=== PATIENT | female | born 1940 | race Caucasian/White ===

== ENCOUNTER 2018-07-08 06:23 | Inpatient (IN) | payer MEDICARE, OTHER ==
[~2018-07-08] VITALS: Ht 152.4 cm; Wt 49.9 kg
--- NOTE | 2018-07-08 06:46 | NUR ---
ANN WAS CONTACTED, PER PT, AND INFORMED THAT PT IS IN THE ED, STS HE IS NOT IN TOWN AND CANNOT COME TO THE ED, BUT STS "I'VE BEEN TRYING TO TAKE CARE OF HER AND I HAVE HER LIVING AT A FACILITY BUT SHE KEEPS RUNNING AWAY", STS HE IS NOT PT'S BLOOD RELATIVE STS "SHE DOES NOT HAVE ANY FAMILY" STS SHE DOES HAVE HX OF ALZHEIMER'S.
--- NOTE | 2018-07-08 06:57 | NUR ---
PATIENT WAS BROUGHT IN BY EMS WITH COMPLAINT OF BILATERAL FOOT PAIN. PATIENT APPEARS DISORIENTED. PATIENT REPORTS SHE FELL 3 TIMES, CLAIM SHE FELL ON HER SIDE. PATIENT HAS BRUISE/SCRATCH ON THE LT KNEE. ems REPORT PATIENT WAS WALKING WITH HE LUGGAGE, AND WALKED INTO A STORE WITH COMPLAINT OF BILATERAL FOOT PAIN. 911 WAS CALLED. PATIENT IS ORIENTED TO PERSON. DR STEELE AT THE BEDSIDE CONTACT WAS MADE. WITH ? FAMILY WHO REPORTES PATIENT HAS DEMENTIA AND TRYS TO LEAVE THE HOME SHE STAYS AT.
[2018-07-08 07:00] LABS: BASOPHIL % 0.3 % (0-2); PLATELET COUNT 192 x10^3mcL (130-400); RED CELL DISTRIBUTION WIDTH 14.3 % (11.5-14.5)
--- NOTE | 2018-07-08 07:09 | NUR ---
PATIENT HAD BLOOD DRAWN EKS WAS DONE. PATIENT IS SLEEPING AT THIS TIME.
[2018-07-08 07:14] LABS: ALBUMIN 3.7 g/dL (3.4-5.0); ALKALINE PHOSPHATASE 91 U/L (46-116); ALT/SGPT 30 U/L (14-59); AST/SGOT 42 U/L (15-37); BILIRUBIN TOTAL 0.6 mg/dL (0.20-1.00); CALCIUM 8.9 mg/dL (8.5-10.1); CARBON DIOXIDE 23.2 mmol/L (21-32); CHLORIDE SERUM 99 mmol/L (98-107); CREATININE SERUM 0.9 mg/dL (0.6-1.0); GLUCOSE SERUM 246 mg/dL (74-106); SODIUM SERUM 136 mmol/L (136-145)
[2018-07-08 07:16] LABS: POTASSIUM SERUM 2.9 mmol/L (3.5-5.1)
--- NOTE | 2018-07-08 07:23 | NUR ---
PT SLEEPING IN GURNEY, EASILY AROUSABLE WITH NAD. PT HOOKED UP TO MONITORS, WILL CONTINUE TO MONITOR.
--- NOTE | 2018-07-08 07:57 | NUR ---
CALLED TITA WHO IS IN PATIENT CONTACT BOOK. NO ANSWER LEFT A VOICEMAIL AT [phone]
--- NOTE | 2018-07-08 08:44 | NUR ---
CALLED ANN, WENT STRAIGHT TO VOICEMAIL LEFT A VOICEMAIL STATING TO CALL BACK. CALLED [phone]
--- NOTE | 2018-07-08 08:52 | NUR ---
ANN CALLED BACK AND STATED THAT PT WAS LIVING WITH DAUGHTER, AND 9 MONTHS AGO DAUGHTER KICKED HER OUT. PT WAS THEN PLACED IN A FACILITY WHICH PT DID NOT LIKE AND RAN AWAY SO THEY FOUND HER A NEW PLACE AND SHE DIDNT LIKE THAT FACILITY WELL. ANN STATES THAT HAS HAPPENED 3 TIMES AND PT KEEPS RUNNING AWAY. ANN STATES THAT PT DOES NOT REALLY HAVE ANY FAMILY.
--- NOTE | 2018-07-08 09:16 | NUR ---
FOOD TRAY PROVIDED. PT EATING WITH NO DIFFICUTLY. HELPED BY LAURIE PANG
--- NOTE | 2018-07-08 09:43 | NUR ---
PATIENT RESTING COMFORTABLY IN BED. ATE 100% OF DIABETIC BREAKFAST, BED IN LOW POSITION WITH SIDE RAILS UP.
--- NOTE | 2018-07-08 11:26 | NUR ---
PATIENT RESTING COMFORTABLY, EASILY AROUSABLE, SIDE RAILS UP AND BED PLACED IN LOCKED AND LOW POSITION. HOOKED UP TO MONITORS AND WILL CONTINUE TO MONITOR.
--- NOTE | 2018-07-08 13:27 | NUR ---
FOOD TRAY DELIVERED IN ROOM.
--- NOTE | 2018-07-08 13:28 | NUR ---
PT EATING LUNCH. AWAKE AND ALERTR. BREATHING EVEN AND U NLABORED. WILL DONOVAN O MONITOR.
--- NOTE | 2018-07-08 13:33 | NUR ---
[facility] WILL [facility] L[facility]EL SKILLED FACILITY AND TRANSPORTATION. STATES IF UNABLE TO FIND PLACEMENT, ADMITTING UNDER OBSERVATION UNTIL PLACEMEMTN IS AUTHORIZED.
--- NOTE | 2018-07-08 14:22 | NUR ---
RECEIVED PATIENT FROM ER NURSE VIA [facility]. PATIENT ABLE TO AMBULATE FROM [facility] TO BED. BREATHING EVEN AND UNLABORED. NO RESPIRATORY DISTRESS NOTED. PATIENT DENIES CHEST PAIN AT THIS TIME. PATIENT A/O X2 PERSON/PLACE. PATIENT IS A MEDSURG PATIENT AND DENIES CHEST PAIN AT THIS TIME. NO APPARENT PROBLEMS WITH EENT. IV PATENT TO LEFT HAND. ALL QUESTIONS AND CONCERNS ADDRESSED. ALL NEEDS ATTENDED TO. PATIENTS PERSONAL BELONGINGS AT BEDSIDE. WILL CONTINUE TO MONITOR
[2018-07-08 15:49] VITALS: BP 110/59
--- NOTE | 2018-07-08 16:48 | NUR ---
PATIENTS BLOOD SUGAR 363 AT THIS TIME. 15 UNITS INSULIN COVERAGE NEEDED (SEE EMAR). ALL NEEDS ATTENDED TO. WILL CONTINUE TO MONITOR
--- NOTE | 2018-07-08 16:56 | NUR ---
DR HALE AWARE OF POTASSIUM REPLACEMENT DOWN IN ER. PER DR GEOFFREY WYATT TO GIVE ANOTHER 40 MEQ OF POTASSIUM AT THIS TIME. ALL QUESTIONS AND CONCERNS ADDRESSED. ALL NEEDS ATTENDED TO. WILL CONTINUE TO MONITOR
[2018-07-08 17:33] VITALS: BP 103/53
--- NOTE | 2018-07-08 18:58 | NUR ---
PATIENT RESTING COMFORTABLY IN BED AT THIS TIME. NO DISTRESS OR DISCOMFOTY NOTED. IV PATENT AND INTACT. ALL QUESTIONS AND CONCERNS ADDRESSED. SAFETY PRECAUTIONS MAINTAINED. ALL NEEDS ATTENDED TO. SITTER AT BEDSIDE TO ENFORCE SAFETY. WILL ENDORSE ALL CARE TO FACILITIES MAINTENANCE WORKER NURSE
--- NOTE | 2018-07-08 20:00 | NUR ---
ASLEEP AROUSABLE TO VERBAL STIMULUS, NO DISTRESS LUNGS CTA, DENIES PAIN, NO BEHAV ISSUES, SITTER AT BEDSIDE, IV ACCESS LH PATENT NON INFIL, SMALL LT KNEE ABRASION RETAIL PHARMACY MANAGER NO S/SX OF IRRITATION, SHIFT ASSESSMENT DONE, CALL LIGHT AT REACH CONT TO MONITOR AND PROCEED TO CURRENT PLAN OF CARE.
[2018-07-08 20:38] VITALS: BP 111/58
--- NOTE | 2018-07-08 22:38 | NUR ---
PT BLD SUGAR 66 MG/DL ASYMTOMATIC, STATED THAT SHE DIDNT EAT DINNER COZ SHE'S NOT HUNGRY, PT DRINK ORANGE JUICE AND ATE THE PUDDING, WILL CONT TO MONITOR.
--- NOTE | 2018-07-09 01:00 | NUR ---
PT SLEPT WELL NO S/SX OF PAIN OR DISCOMFORTS, NO DISTRESS, SITTER REMAINED AT BEDSIDE, BED ALARM ON, CHECKED AT INTERVALS.
[2018-07-09 05:38] VITALS: BP 109/52
[2018-07-09 06:30] LABS: CALCIUM 8.4 mg/dL (8.5-10.1); CHLORIDE SERUM 104 mmol/L (98-107); CREATININE SERUM 0.7 mg/dL (0.6-1.0); GLUCOSE SERUM 181 mg/dL (74-106); POTASSIUM SERUM 3.3 mmol/L (3.5-5.1); SODIUM SERUM 139 mmol/L (136-145)
[2018-07-09 06:35] LABS: BASOPHIL % 0.5 % (0-2); PLATELET COUNT 157 x10^3mcL (130-400)
--- NOTE | 2018-07-09 06:55 | NUR ---
NO SIGNIFICANT CHANGES, SITTER AT BEDSIDE, PT IS COOPERATIVE AND CALM FOLLOWS SIMPLE COMMANDS, WILL ENDORSE TO INCOMING SHIFT.
[2018-07-09 07:03] LABS: RED CELL DISTRIBUTION WIDTH 15.1 % (11.5-14.5)
--- NOTE | 2018-07-09 07:50 | NUR ---
RC'D PT RESTING IN BED WITH NO APPARENT SIGNS OF DISTRESS. A/A/O/X2, SPEECH CLEAR. PT CONFUSED AT TIMES. MEDSURG. DENIES CHEST PAIN/PRESSURE. PALP PULSES, NO EDEMA NOTED. RESPIRATIONS EQUAL AND UNLABORED. LUNGS CTA. ON RA, DENIES SOB. ABDOMEN SOFT AND NONTENDER. ACTIVE BS. DENIES N/V. VOIDS FREELY. GENERALIZED WEAKNESS. AMB WITH ASSIST. LLE ABRASIAN NOTED, MARIA ISABEL. PT DENIES PAIN AT THIS TIME. IV PATENT AND INTACT. BED IN LOW POSITION. CALL LIGHT IN REACH. WILL CONTINUE TO MONTIOR
--- NOTE | 2018-07-09 08:39 | NUR ---
PT CURRENTLY WORKING WITH PT. NO APPARENT SIGNS OF DISTRESS. WILL CONTINUE TO MONITOR
[2018-07-09 09:21] VITALS: BP 106/56
--- NOTE | 2018-07-09 09:25 | NUR ---
PT C/O OFMILD VELEZ, MEDICATED PER EMAR.
--- NOTE | 2018-07-09 11:55 | NUR ---
PT RESTING IN BED WITH NO APPARENT SIGNS OF DISTRESS. RESPIRATIONS EQUAL AND UNLABORED. ON RA, DENIES SOB. PT DENIES EXCESSIVE PAIN AT THIS TIME. BED IN LOW POSITION. CALL LIGHT IN REACH. WILL CONTINUE TO MONITOR
--- NOTE | 2018-07-09 17:35 | NUR ---
PT RESTING IN CHAIR EATING DINNER WITH NO APPARENT SIGNS OF DISTRESS. MEDSURG. NO APPARENT S/S OF CP. RESPIRATIONS EQUAL AND UNLABORED. ON RA, NO S/S OF RESP DISTRESS. AMBULATORY WITH ASSIST. NO ACUTE SKIN CHANGES NOTED AT THIS TIME. PT DENIES EXCESSIVE PAIN. IV PATENT AND INTACT. CALL LIGHT IN REACH. WILL ENDORSE TO FIELD SERVICE ANALYST RN
[2018-07-09 17:44] VITALS: BP 121/60
--- NOTE | 2018-07-09 19:20 | NUR ---
RECEIVED PT SITTING ON THE CHAIR WATCHING TV. NO DISTRESS NOTED. NO C/O PAIN. SALINE LOCK TO LH, PATENT AND INTACT. BED IN LOWEST POSITION,CALL LIGHT WITHIN REACH. WILL CONTINUE TO MONITOR.
--- NOTE | 2018-07-09 19:22 | NUR ---
PT C/O OF PAIN, MEDICATED PER EMAR.
[2018-07-09 20:59] VITALS: BP 113/54
[2018-07-10 04:45] VITALS: BP 106/53
--- NOTE | 2018-07-10 05:37 | NUR ---
PT APPEARS TO BE SLEEPING.NO ACUTE DISTRESS NOTED. NOINDICATION OF PAIN. BED IN LOWEST POSITION,SIDERAILS UP. CALL LIGHT WITHIN REACH. WILL CONTIUE TO MONITOR.
--- NOTE | 2018-07-10 07:50 | NUR ---
CARE ENDORSED TO DAY NURSE MARY.
--- NOTE | 2018-07-10 08:00 | NUR ---
RC'D PT RESTING IN BED WITH NO APPARENT SIGNS OF DISTRESS. A/A/O/X2 SPEECH CLEAR AND APPROPRIATE. PT CONFUSED AT TIMES. PT C/O OF SLIGHT HEAD DISCOMFORT, WILL MEDICATE ACCORDINGLY. PALP PULSES, NO EDEMA NOTED. RESPIRATIONS EQUAL AND UNLABORED. LUNGS CTA. ON RA, DENIES SOB. ABDOMEN SOFT AND NONTENDER. ACTIVE BS. DENIES N/V. VOIDS FREELY. AMBULATORY WITH ASSIST. GENERALIZED WEAKNESS. LLE MARIA ISABEL HURT. IV PATENT AND INTACT. BED IN LOW POSITION. CALL LIGHT IN REACH. WILL CONTINUE TO MONITOR
--- NOTE | 2018-07-10 08:43 | NUR ---
PT C/O OF VELEZ, MEDICATED PER EMAR
[2018-07-10 08:55] VITALS: BP 112/71
--- NOTE | 2018-07-10 12:59 | NUR ---
PT RESTING IN BED EATING LUNCH WITH NO APPARENT SIGNS OF DISTRESS. RESPIRATIONS EQUAL AND UNLABORED. DENIES PAIN AT THIS TIME. BED IN LOW POSITION. CALL LIGHT IN REACH. WILL CONTINUE TO MONITOR
[2018-07-10 16:45] VITALS: BP 103/51
--- NOTE | 2018-07-10 17:56 | NUR ---
PT RESTING IN BED WITH NO APPARENT SIGNS OF DISTRESS, MEDSURG. DENIES CHEST PAIN/PRESSURE. RESPIRATIONS EQUAL AND UNLABORED. ON RA, DENIES OB. GENERALIZED WEAKNESS. AMB WITH ASSIST. NO ACUTE SKIN CHANGES NOTED. PT DENIES PAIN AT THIS TIME. IV PATENT AND INTACT, SL. BED IN LOW POSITION. CALL LIGHT IN REACH. WILL ENDORSE TO CONTROLS OPERATOR MOLDED GOODS RN
--- NOTE | 2018-07-10 19:40 | NUR ---
REC'D PT FROM DAY NURSE. PT SITTING ON THE CHAIR. ORIENTED TO SELF ONLY. HX DEMENTIA. FOLLOWS COMMANDS, SPEECH CLEAR, NO FACIAL DROOP NOTED. JAPANESE SPEAKING. MARIZOL, VENEER SLICING MACHINE OPERATOR, ASSISTED WITH TRANSLATION. PT WAS LOOKING FOR DIRECTIONS TO GET TO A [facility] IN [place]. REORIENTED TO PLACE AND TIME. INFORMED THE PT WE ARE LOOKING FOR A JAIL TO PLACE HER IN. PT VERBALIZED UNDERSTANDING. MED SURG, NO TELE. DENIES ANY PAIN OR DISCOMFORT. BREATHING EVEN/UNLABORED ON RA. ABD SOFT/ROUND. DENIES ABD PAIN, TENDERNESS OR N/V. VOIDING FREELY. GEN WEAKNESS. AMB WITH SUPERVISION. LIMP NOTED. LEFT KNEE ABRASION GRAIN BROKER AND MARKET OPERATOR. IV TO LFA FLUSHED AND PATENT, SITE WNL. CALL LIGHT WITHIN REACH, BED AT LOWEST POSITION. WILL CONTINUE TO MONITOR.
[2018-07-10 21:04] VITALS: BP 118/66
--- NOTE | 2018-07-11 00:52 | NUR ---
PT RESTING IN BED WITH EYES CLOSED. NO SIGNS OF DISTRESS NOTED. BREATHING EVEN/UNLABORED ON RA. CALL LIGHT WITHIN REACH, BED AT LOWEST POSITION. WILL CONTINUE TO MONTIOR.
[2018-07-11 05:15] VITALS: BP 130/64
--- NOTE | 2018-07-11 06:44 | NUR ---
PT RESTING IN BED WITH EYES CLOSED. LAYING ON R SIDE. AWAKENS WITH VERBAL STIMULI. BREATHING EVEN/UNLABORED ON RA. NO SIGNFICANT CHANGES DURING SHIFT. BS 153, 3 UNITS REG INSULIN GIVEN. CALL LIGHT WITHIN REACH, BED AT LOWEST POSITION. WILL ENDORSE TO DAY NURSE.
--- NOTE | 2018-07-11 07:15 | NUR ---
RECEIVED PT FROM [facility] LAURIE CHRISTINA. PT AWAKE AND ALERT. NO S/S OF ACUTE DISTRESS. NO COMPLAINT OF PAIN. DENIES SOB ON ROOM AIR. NO CHEST PAIN. PT IN ROOM CLOSE TO NURSES STATION. BED IN LOW POSITION. CALL LIGHT WITHIN REACH. WILL CONT. TO MONITOR.
[2018-07-11 08:34] VITALS: BP 125/57
--- NOTE | 2018-07-11 12:00 | NUR ---
PT SITTING IN CHAIR AT SIDE OF BED. AA/OX2, NO S/S OF ACUTE DISTRESS. DENIES PAIN. NO SOB ON ROOM AIR. CALM/COOPERATIVE. AMBULATORY WITH FULL ROM, GAIT SLOW/STEADY. BED IN LOW POSITION. CALL LIGHT WITHIN REACH. WILL CONT. TO MONITOR.
--- NOTE | 2018-07-11 12:46 | NUR ---
Initial Nutrition Assessment Dx: Gravely disabled, DM, Dementia PMHx: DM Type II PSHx: None Labs: (07/09) Na 139, K 3.3L, BG 181H, BUN 9, Cr 0.7, A1c 11.1H, WBC 5.4, H/H 11.2L/33L BG accuchecks 07/09-07/11: 119-331 mg/dL, with some readings >180 mg/dL. Insulin coverage is provided PRN. Meds: Tylenol, D50%, Glyburide, [place], Humulin, Metformin, Zofran Diet: [facility] PO Intake: (07/09-07/11): 85-100% x 7 meals Ht: 60" (152 cm) Wt: 110# (49.9 kg) BMI: 21.5 (Slightly underweight considering age) IBW: 100# %IBW: 110% UBW: Unable to recall Age: 77 y/o elderly female Food Allergies: NKFA Skin: Intact Rocky: 19 Edema: None GI: Last BM x 1 (07/11) Per H&P, pt. admitted with leg pain and frequent falls; no trauma sustained based on imaging reports. Hx of DM, no other history was obtained due to pt. being a poor historian d/t cognitive degeneration. No acute events overnight, as pt. is medically stable for transfer. Per bed huddle discussion, pt. is homeless and jail placement is pending at this time. Pt. laying in bed during visit. AO x 1, and unable to answer nutrition related questions. Pt. has excellent PO intake with good tolerance and no GI distress per nursing. Problem with: No c/o N/V/D/C Problems with: Chewing: N Swallowing: N Current appetite: Excellent Recent wt change: N/A %wt change: N/A Vitamin/Supplement use: None Special diet at home: Regular Physical activity: None, pt. is homeless Education: Attempted [facility] diet education; unable to comprehend [facility] diet education d/t cognitive decline from Dementia. Estimated Nutritional Needs Based on actual body weight 49.9 kg: Energy: 4771-0105 kcal/d (25-30 kcal/kg- older adult maintenance) Protein: 50-60 g/d (1.0-1.2 g/kg)-geriatric maintenance and preservation of lean body mass Fluid: 0501-5755 ml/d (1 ml/kcal-fluid balance) or per doctor Nutrition Diagnosis 1. Altered nutrition related laboratory values r/t endocrine dysfunction AEB measured A1c 11.1 and accuchecks >180 mg/dL x 3 days. Intervention/RD recommendations 1. Continue CCHO diet as ordered and as tolerated for optimal BG management. 2. If PO intake <75% by following assessment, will consider adding ONS. Monitor/Evaluate Goal: PO intake at least 75% of estimated needs Monitor: PO intake, Labs, GI function, diet tolerance, BG <180 mg/dL F/U in 7 days as low risk (07/18)
[2018-07-11 16:24] VITALS: BP 124/64
--- NOTE | 2018-07-11 18:43 | NUR ---
PT AMBULATORY IN ROOM, TOLERATING ACTIVITY WELL. AA/OX2. NO S/S OF ACUTE DISTRESS. NO COMPLAINT OF PAIN. NO SOB ON ROOM AIR. CALM/COOPERATIVE. IV WNL, SALINE LOCKED. BED IN LOW POSITION. CALL LIGHT WITHIN REACH. WILL ENDORSE TO ONCOMING SHIFT.
[2018-07-11 20:53] VITALS: BP 111/57
--- NOTE | 2018-07-11 22:20 | NUR ---
AT 1945 I RECEIVED PT IN BED AAOX1 [place] SPEAKING ONLY, LUNG SOUNDS CTA , ABD SOFT , BS ACTIVE X4, HL INTACT FLUSHING WELL , CALL LIGHT WITHIN PT;S REACH , WILL CON'T TO MONITOR AND ASSIST PT WITH CARE .
--- NOTE | 2018-07-12 04:08 | NUR ---
PT'S IN BED WITH EYES CLOSED .
[2018-07-12 05:15] VITALS: BP 114/41
--- NOTE | 2018-07-12 06:13 | NUR ---
PT'S IN BED WITH EYES CLOSED , ALL DUE MEDS GIVEN NO REACTION NOTED . WILL CON;T TO MONITOR PT CLOSELY.
--- NOTE | 2018-07-12 07:06 | NUR ---
RECEIVED PT FROM [facility] KIRSTIE MARECLINO. PT FOUND RESTING IN BED WITH BOTH EYES CLOSED, NO S/S OF ACUTE DISTRESS. EASILY AROUSABLE TO VERBAL STIMULI. IV WNL, SALINE LOCKED. BED IN LOW POSITION. CALL LIGHT WITHIN REACH. FALL PREC IN PLACE. WILL CONT TO MONITOR.
[2018-07-12 08:15] VITALS: BP 128/72
--- NOTE | 2018-07-12 12:00 | NUR ---
PT AWAKE AND ALERT. NO S/S OF ACUTE DISTRESS. SITTING IN CHAIR AT SIDE OF BED. NO SOB ON ROOM AIR. NO CHEST PAIN. CALM/COOPERATIVE. IV WNL, SALINE LOCKED. BED IN LOW POSITION. CALL LIGHT WITHIN REACH. WILL CONT. TO MONITOR.
--- NOTE | 2018-07-12 14:00 | NUR ---
CALLED TO DR. GUERRERO'S OFFICE [phone], REMINDED OFFICE TO FOLLOW UP THE ORDER FOR CONSULATION SINCE YESTERDAY. THEY WILL GIVE THE INFORMATION TO DR. KNIGHT.
[2018-07-12 16:01] VITALS: BP 122/61
--- NOTE | 2018-07-12 18:32 | NUR ---
PT SITTING IN CHAIR AT SIDE OF BED. AA/OX1, FORGETFUL. NO S/S OF ACUTE DISTRESS. DENIES PAIN. NO SOB ON ROOM AIR. NO CHEST PAIN. CALM/COOPERATIVE. CALL LIGHT WITHIN REACH. WILL ENDORSE TO ONCOMING SHIFT.
--- NOTE | 2018-07-12 20:12 | NUR ---
RECEIVED PT SITTING ON THE CHAIR AAOX1 [place] SPEAKING ONLY , PT DENY PAIN AT THE MOMENT , LUNG SOUNDS CTA , ABD SOFT , BS ACTIVE X4 , HL INTACT FLUSHING WELL , CALL LIGHT WITHIN PT'S REACH , WILL CON'T TO MONITOR AND ASSIST PT WITH CARE .
[2018-07-12 20:41] VITALS: BP 121/61
[2018-07-13 04:55] VITALS: BP 113/49
--- NOTE | 2018-07-13 06:00 | NUR ---
NO CHANGES OF CONDITION NOTED, ALL DUE MEDS GIVEN NO REACTION NOTED, HL PATENT FLUSHING WELL , PT'S IN BED AWAKE AT THE MOMENT .
--- NOTE | 2018-07-13 07:00 | NUR ---
RECEIVED REPORT FROM COUPLING MACHINE OPERATOR NURSE AT THIS TIME. PATIENT RESTING COMFORTABLY IN BED. NO APPARENT DISTRESS OR DISCOMFORT. NO INDICATIONS OF CHEST PAIN NOTED. BREATHING EVEN AND UNLABORED. NO RESPIRATORY DISTRESS NOTED. IV PATENT AND INTACT. ALL QUESTIONS AND CONCERNS ADDRESSED. ALL NEEDS ATTENDED TO. WILL CONTINUE TO MONITOR
--- NOTE | 2018-07-13 08:37 | NUR ---
ALL MORNING MEDICATIONS ADMINISTERED. PATIENT TOLERATED MEDICATION WELL. NO ADVERSE EFFECTS NOTED. ALL NEEDS ATTENDED TO. WILL CONTINUE TO MONITOR
[2018-07-13 09:25] VITALS: BP 107/54
--- NOTE | 2018-07-13 13:00 | NUR ---
PATIENT SITTING UP IN CHAIR EATING LUNCH AT THIS TIME. PATIENT TLERATING DIET WELL. NO APPARENT DISTRESS OR DISCOMFORT NOTED. ALL NEEDS ATTENDED TO. WILL CONTINUE TO MONITOR
[2018-07-13 17:06] VITALS: BP 128/74
--- NOTE | 2018-07-13 17:15 | NUR ---
PHYSICAL THERAPY DAILY NOTES CO-SIGN All documentation done by the Hemodialysis Technician for 07/13/18 has been reviewed. I agree with the documentation. Reviewed/Co-Signed by: Patience Klein Documentation Done by:LATRICE MELO
--- NOTE | 2018-07-13 17:58 | NUR ---
PATIENT SITTING UP IN A CHAIR EATING DINNER AT THIS TIME. PATIENT TOLERATING DIET. NO DISTRESS OR DISCOMFORT NOTED. ALL NEEDS ATTENDED TO. WILL CONTINUE TO MONITOR
--- NOTE | 2018-07-13 18:32 | NUR ---
PATIENT RESTING COMFORTABLY IN CHAIR AT THIS TIME. NO DISTRESS OR DISCOMFORT NOTED. IV PATENT AND INTACT. ALL QUESTIONS AND CONCERNS ADDRESSED. SAFETY PRECAUTIONS MAINTAINED. ALL NEEDS ATTENDED TO. WILL ENDORSE ALL CARE TO PETROLEUM INSPECTOR NURSE
--- NOTE | 2018-07-13 19:30 | NUR ---
RECIEVED PATIENT AT START OF SHIFT AWAKE AND ORIENTED TO SELF ONLY. ITALIAN SPEAKING. APPEARS COMFORTABLE ON ROOM AIR, NO SOB NOTED. NO COMPLAINT OF PAIN. SMALL LEFT KNEE ABRASION NOTED, MARIA ISABEL. IV TO LFA SALINE LOCKED, FLUSHING WELL. PATIENT IS AMBULATORY WITHOUT ASSIST. BED LOCKED AND IN LOWEST POSITION, CALL LIGHT AND BEDSIDE TABLE WITHIN REACH. WILL CONTINUE TO MONITOR.
[2018-07-13 21:29] VITALS: BP 113/62
--- NOTE | 2018-07-14 01:00 | NUR ---
PATIENT'S EYES ARE CLOSED, BREATHS EVEN AND REGULAR. NO SIGNS OF DISTRESS. WILL CONTINUE TO MONITOR.
[2018-07-14 06:18] VITALS: BP 113/56
--- NOTE | 2018-07-14 06:39 | NUR ---
NO SIGNIFICANT EVENTS OR CHANGE IN STATUS THIS SHIFT. WILL ENDORSE CARE TO MORNING NURSE.
--- NOTE | 2018-07-14 07:05 | NUR ---
RECEIVED REPORT FROM HR ADMINISTRATIVE ASSISTANT NURSE AT THIS TIME. PATIENT RESTING COMFORTABLY IN BED. NO APPARENT DISTRESS OR DISCOMFORT NOTED. BREATHING EVEN AND UNLABORED. PATIENT DENIES SHORTNESS OF BREATH. PATIENT DENIES CHEST PAIN AT THIS TIME. IV PATENT AND INTACT. ALL QUESTIONS AND CONCERNS ADDRESSED. ALL NEEDS ATTENDED TO. WILL CONTINUE TO MONITOR
[2018-07-14 08:46] VITALS: BP 122/63
--- NOTE | 2018-07-14 08:57 | NUR ---
PATIENT C/O 5/10 HEADACHE AT THIS TIME. MEDICATED WITH PRN TYLENOL. PATIENT TOLERATED MEDICATION WELL. NO ADVERSE EFFECTS NOTED. ALL NEEDS ATTENDED TO. WILL CONTINUE TO MONITOR
--- NOTE | 2018-07-14 09:31 | NUR ---
ALL MORNING MEDICATIONS ADMINSITERED. PATIENT TOLERATED WELL. NO ADVERSE EFFECTS NOTED. NO APPARENT DISTRESS. ALL QUESTIONS AND CONCERNS ADDRESSED. ALL NEEDS ATTENDED TO. WILL CONTINUE TO MONITOR
--- NOTE | 2018-07-14 12:45 | NUR ---
PATIENT SITTING UP IN CHAIR EATING LUNCH AT THIS TIME. PATIENT TOLERATING DIET WELL. NO APPARENT DISTRESS NOTED. ALL NEEDS ATTENDED TO. WILL CONTINUE TO MONITOR
--- NOTE | 2018-07-14 13:43 | NUR ---
SPOKE TO SERVICE ASSISTANT FLASH REGARDING PATIENT BEING TRANSFERRED TODAY. INFORMED FLASH VIRAMONTES HAD TO BE PAGED TO FINISH DISCHARGE PAPERS. PAGED DR VIRAMONTES AT THIS TIME. AWAITING CALL BACK.
[2018-07-14] MEDS ORDERED: GLU500 PO (14:04)
[2018-07-14] MEDS ORDERED: GLYBURIDE5 MG PO (14:04)
[2018-07-14 14:06] VITALS: BP 122/63
--- NOTE | 2018-07-14 16:30 | NUR ---
PATIENT BLOOD SUGAR 141. NO INSULIN COVERAGE NEEDED. WILL CONTINUE TO MONITOR
--- NOTE | 2018-07-14 17:29 | NUR ---
GAVE REPORT TO MERLINE THACKER AT [facility]. ALL QUESTIONS AND CONCERNS ADDRESSED. PATIENT STABLE TO BE TRANSFERRED. DISCHARGE INSTRUCTIONS GIVEN WELL EDUCATION. PATIENT VERBALIZES UNDERSTANDING. IV REMOVED WITH CATH INTACT. ID BANDS REMOVED. ALL BELONGINGS WITH PATIENT. PATIENT CONSENTS TO BEING TRANSFERRED. AWAITING TRANSPORTATION AT THIS TIME.
[2018-07-14 17:53] VITALS: BP 135/71
--- NOTE | 2018-07-14 18:46 | NUR ---
TRANPORT TEAM TO TRANSPORT PATIENT TO [facility]. ALL QUESTIONS AND CONCERNS ADDRESSED. ALL NEEDS ATTENDED TO. PATIENT ESCORTED DOWN BY TRANSPORT AT THIS TIME
== END 2018-07-14 18:45 | disposition home or self-care (01) | DRG 884 ==
LOC: ED 06:23 → MU 13:26
PROVIDERS: Emergency Medicine; ADMIT Internal Medicine Pulmonary Disease
DX: F03.90 Unspecified dementia, unspecified severity, without behavioral disturbance, psychotic disturbance, mood disturbance, and anxiety (principal); S80.212A Abrasion, left knee, initial encounter; E11.65 Type 2 diabetes mellitus with hyperglycemia; E87.6 Hypokalemia; R26.81 Unsteadiness on feet; Z59.0 Homelessness; Z91.81 History of falling; W18.39XA Other fall on same level, initial encounter; Y92.89 Other specified places as the place of occurrence of the external cause
CPT/HCPCS: 82962; 97110-GP; 97112-GP; 97116-GP; 97530-GP; J3475; J7050; Q0092